=== PATIENT | male | born 1965 | race Caucasian/White ===

== ENCOUNTER 2018-10-21 06:01 | Day surgery (SDC) | payer OTHER ==
[2018-10-18 17:33] VITALS: BMI 23.7
[~2018-10-21] VITALS: Ht 180.3 cm; Wt 74.5 kg
[2018-10-21] VITALS (15 sets, daily range): BP systolic 115–135; BP diastolic 67–81; PULSE 72–82; RESP 15–25; Ht 180.3 cm; Wt 74.5 kg
--- NOTE | 2018-10-21 07:29 | HPN ---
Date/Time of Note Date/Time of Note DATE: 10/21/18 TIME: 07:29 Interval H&P Admission Note Pt. seen H&P reviewed: No system changes YESI FINN MD Oct 21, 2018 07:29
[2018-10-21] MEDS ORDERED: LIDOCAINE 1% (MPF) 30 ML INJ ONE (07:33)
[2018-10-21] MEDS ORDERED: HEPARIN 1000 UNITS/ML 10 ML INJ ONE (07:33)
[2018-10-21] MEDS ORDERED: THROMBIN 5000 UNIT VIAL ONE (07:34)
--- NOTE | 2018-10-21 07:39 | PREAC ---
Date/Time of Note Date/Time of Note DATE: 10/21/18 TIME: 07:36 Anesthesia Eval and Record Evaluation Time Pre-Procedure Interview DATE: 10/21/18 TIME: 07:36 Age 53 Sex male NPO: Other small piece of bread at 5 am Preoperative diagnosis esrd Planned procedure left basilic vein transposition Past Medical History Past Medical History: Includes Cardio: HTN Neuro: CVA Renal: ESRD on dialysis Hepatic: Cirrhosis Heme: Anemia Surgery & Anesthesia Issues No known issue Meds Anticoagulation: No Beta Lotus within 24 hr: No Reason Beta Lotus not given: Pt. not on B-Lotus Meds reviewed: Yes Allergies Coded Allergies: No Known Allergy (Unverified , 10/18/18) Allergies Reviewed: Yes Labs/Studies Labs Reviewed: Reviewed by anesthesiologist Result Diagram: 10/21/18 0650 Laboratory Tests 10/21/18 06:50 Blood Bank Test 10/21/18 07:30 Blood Product Summary Counts test: N/A Studies: ECG, CXR Pre-procedure Exam Last vitals Vital Signs Date Temp Pulse Resp B/P (MAP) Pulse Ox O2 O2 Flow FiO2 Time Delivery Rate 10/21/18 98.8 82 18 127/70 99 Room Air 07:17 (89) Airway: Adequate mouth opening, Adequate thyromental dist Mallampati: Mallampati I Teeth: Normal Lung: Normal Heart: Normal ASA Physical Status ASA physical status: 3 Emergency: None Planned Anesthetic Nerve block: Brachial plexus (left) Planned Pain Management Single shot nerve block, Parenteral pain med Pre-operative Attestations Prior to commencing anesthesia and surgery, the patient was re-evaluated, there was verification of: *The patient's identity *The results of appropriate recent lab work and preoperative vital signs *The above evaluation not changing prior to induction *Anesthetic plan, risk benefits, alternative and complications discussed with patient/family; questions answered; patient/family understands, accepts and wishes to proceed. CHANNING LUNA Oct 21, 2018 07:39
[2018-10-21] MEDS ORDERED: MIDAZOLAM 1 MG/ML 2 ML INJ ONE (07:43)
[2018-10-21] MEDS ORDERED: AMLO2.5T78 PO (07:43)
[2018-10-21] MEDS ORDERED: CEFAZOLIN 1 GM INJ ONE (07:43)
[2018-10-21] MEDS ORDERED: BUPIVACAINE 0.5% (SDV) 30 ML INJ ONE (07:43)
[2018-10-21] MEDS ORDERED: FURO40TA4 PO (07:43)
[2018-10-21] MEDS ORDERED: SEVOFLURANE 15 MIN ONE (07:43)
[2018-10-21] MEDS ORDERED: PANT40TA4 PO (07:43)
[2018-10-21] MEDS ORDERED: HEPARIN 1000 UNITS/ML 10 ML INJ IRR ONE (07:50)
[2018-10-21] MEDS ORDERED: FENTAnyl 50 MCG/ML VIAL ONE (08:11)
[2018-10-21] MEDS ORDERED: PHENYLephrine (100 MCG/ML) 5ML SYG ONE (08:16)
[2018-10-21] MEDS ORDERED: ROPIVACAINE 0.5 % 30 ML VIAL ONE (08:16)
[2018-10-21] MEDS ORDERED: GELATIN SIZE 100 SPONGE ONE (08:36)
[2018-10-21] MEDS ORDERED: LIDOCAINE 2% (SDV) 5 ML INJ ONE (09:22)
[2018-10-21] MEDS ORDERED: PROPOFOL 20 ML ONE (09:22)
--- NOTE | 2018-10-21 09:26 | SIPON ---
Date/Time of Note Date/Time of Note DATE: 10/21/18 TIME: 09:25 Operative Report Preoperative Diagnosis ESRD Postoperative Diagnosis same Operation/Procedure Performed L arm basilic vein transposition - 2nd stage Surgeon see signature line technician assistant none Anesthesia: general Estimated blood loss: 10 - 50 ml's Transfusion Required none Specimen none Grafts/Implants none Complications none YESI FINN MD Oct 21, 2018 09:26
--- NOTE | 2018-10-21 09:37 | PAC ---
Date/Time of Note Date/Time of Note DATE: 10/21/18 TIME: 09:37 Post-Anesthesia Notes Post-Anesthesia Note Last documented vital signs Vital Signs Date Temp Pulse Resp B/P (MAP) Pulse Ox O2 O2 Flow FiO2 Time Delivery Rate 10/21/18 98.8 82 18 127/70 99 Room Air 0937 (89) Activity: WNL Respiratory function: WNL Cardiovascular function: WNL Mental status: Baseline Pain reasonably controlled: Yes Hydration appropriate: Yes Nausea/Vomiting absent: Yes CHANNING LUNA Oct 21, 2018 09:37
[2018-10-21] MEDS ORDERED: ALBUTEROL 0.083% (NEB) 2.5 MG/3 ML AMP HHN PRN (10:00)
[2018-10-21] MEDS ORDERED: METOCLOPRAMIDE 10 MG INJ IV PRN (10:00)
[2018-10-21] MEDS ORDERED: MIDAZOLAM 1 MG/ML 2 ML INJ IV PRN (10:00)
[2018-10-21] MEDS ORDERED: FENTAnyl 50 MCG/ML VIAL IV PRN ×3 (10:00)
[2018-10-21] MEDS ORDERED: HYDROmorphONE 1 MG/5 ML IV SYRINGE IV PRN ×3 (10:00)
[2018-10-21] MEDS ORDERED: DIPHENHYDRAMINE 50 MG INJ IV PRN (10:00)
[2018-10-21] MEDS ORDERED: MEPERIDINE 25 MG INJ IV PRN (10:00)
[2018-10-21] MEDS ORDERED: hydrALAzine 20 MG INJ IV PRN (10:00)
[2018-10-21] MEDS ORDERED: LABETALOL HCL 20MG INJ IV PRN (10:00)
[2018-10-21] MEDS ORDERED: ONDANSETRON 4 MG INJ IV PRN (10:00)
[2018-10-21] MEDS ORDERED: EPHEDrine SULFATE 50 MG/5 ML SYG IV PRN (10:00)
[2018-10-21] MEDS ORDERED: OXYCODONE/ACETAMINOPHEN (5/325) TAB PO PRN ×2 (10:00)
--- NOTE | 2018-10-21 10:08 | OPR ---
DATE OF OPERATION: 10/21/2018 PREOPERATIVE DIAGNOSIS: End-stage renal disease. POSTOPERATIVE DIAGNOSIS: End-stage renal disease. PROCEDURE PERFORMED: Left arm basilic vein transposition second stage. ANESTHESIA: Scalene block with LMA. ESTIMATED BLOOD LOSS: 50 mL. COMPLICATIONS: There are no intraprocedural complications. INDICATIONS: This is a 53-year-old diabetic hypertensive man with end-stage renal disease, has been on dialysis for more than 6 months. He has a right IJ Perm-A-Cath. He has a left arm basilic with b rachial basilic AV fistulas for a stage that was created several months ago, brought him in today to superficialize basilic vein is well developed and has an excellent thrill. DESCRIPTION OF PROCEDURE: The patient was brought to the operating room, placed on the table in the supine position. After Dr. Mancia from anesthesia, placed a scalene block and LMA. Left arm was prepp ed and draped in the usual sterile fashion. I already marked the basilic vein from the elbow all the way to the axilla. I then began just above the elbow I made three incisions over the basilic vein f rom the elbow to the axilla and carefully dissected out the basilic vein along the entire length. I skeletonized it by ligating all the side branches with either 2-0 or 3-0 silk ties and dividing them. There was a huge vein very nice caliber. Once I had it fully skeletonized, I clamped the fistula j ust at the base of the lower incision right above the arterial anastomosis. A 2 cm higher I transect ed the vein obliquely. I then used a long DeBakey aortic clamp, attempt to tunnel the vein in a supe rficial plane going out over the bicep. I then anastomosed the two ends of the vein using 6-0 Prolen e suture, and removed the clamps. There was an excellent thrill. There was good hemostasis. I clos ed the skin incisions in two layers using an inner layer of 3-0 Vicryl and an outer layer of 4-0 Gillespie cryl subcuticular suture. Sterile dressing was applied. The patient was then extubated in the opera ting room and transferred to recovery room in stable condition. He tolerated the procedure well with out any complications. Dictated By: YESI BALLARD/MONTRELL Conf#: [id number] [facility]#: [id number] CC: YESI FINN MD;*[facility]*
--- NOTE | 2018-10-21 14:24 | RADRPT ---
Vent Rate: 74 bpm RR Interval: 808 msec WA Interval: 156 msec QRS Duration: 97 msec QT Interval: 457 msec QTC Interval: 508 msec P-R-T [place]: 86 - 99 - 63 degrees Sinus rhythm...normal P axis, V-rate 50- 99 Borderline right axis deviation...QRS axis ( 90, 99) Prolonged QT interval...QTc >500mS Electronically Signed By: Twin Michel
== END 2018-10-21 12:20 | disposition home or self-care (01) ==
LOC: SDS 06:01
PROVIDERS: ATTEND Surgery Vascular Surgery
DX: I12.0 Hypertensive chronic kidney disease with stage 5 chronic kidney disease or end stage renal disease (principal); N18.6 End stage renal disease
CPT/HCPCS: 36819; 71045; 80053; 85025; 85610; 85730; 86850; 86900; 86901; 86920; 93005; J0690; J1644; J2250; J3010; Z7512; Z7610; J2370; J2795